=== PATIENT | male | born 1995 | race Caucasian/White ===

== ENCOUNTER 2022-08-20 17:07 | Inpatient (IN) | payer OTHER ==
[~2022-08-20] VITALS: Ht 175.3 cm; Wt 94.8 kg
[2022-08-20 17:37] VITALS: BP 118/86
[2022-08-20 18:07] LABS: BASOPHILS # (AUTO) 0.1 K/uL (0.00-0.22); BASOPHILS % (AUTO) 0.7 % (0.0-2.0); EOSINOPHILS # (AUTO) 0.1 K/uL (0-0.4); EOSINOPHILS % (AUTO) 1.7 % (0.0-4.0); HEMATOCRIT 48.3 % (36-52); HEMOGLOBIN 16.3 g/dL (12.0-18.0); LYMPHOCYTES # (AUTO) 2.2 K/uL (2.0-11.5); LYMPHOCYTES % (AUTO) 26.9 % (20.5-51.1); MEAN CORPUSCULAR HEMOGLOBIN 30 pg (27-31); MEAN CORPUSCULAR HGB CONC 34 g/dL (33-37); MEAN CORPUSCULAR VOLUME 88.6 fL (80-94); MONOCYTES # (AUTO) 0.6 K/uL (0.8-1.0); MONOCYTES % (AUTO) 7.4 % (1.7-9.3); NEUTROPHILS # (AUTO) 5.3 K/uL (1.8-7.7); NEUTROPHILS % (AUTO) 63.3 % (42.2-75.2); PLATELET COUNT (AUTO) 212 K/uL (140-450); RED BLOOD CELL COUNT(AUTO) 5.45 MIL/uL (4.20-6.10); RED CELL DISTRIBUTION WIDTH 13.6 % (11.6-13.7); WHITE BLOOD COUNT (AUTO) 8.3 K/uL (4.8-10.8)
[2022-08-20 18:10] LABS: APPEARANCE,URINE CLEAR (CLEAR); BILIRUBIN,URINE NEGATIVE (NEGATIVE); BLOOD, URINE NEGATIVE (NEGATIVE); COLOR,URINE YELLOW (YELLOW); LEUKOCYTE ESTERASE ,URINE NEGATIVE (NEGATIVE); NITRITE, URINE NEGATIVE (NEGATIVE); PH,URINE 6.5 (5.0-9.0); UGLUCOSE NEGATIVE (NEGATIVE)
[2022-08-20 18:27] LABS: ALBUMIN 4.4 g/dL (3.4-5.0); ANION GAP 8.2 (8-16); CARBON DIOXIDE 33.3 mmol/L (21-32); CREATININE 1.2 mg/dL (0.6-1.3); POTASSIUM 4.5 mmol/L (3.5-5.1); TOTAL BILIRUBIN 0.5 mg/dL (0.0-1.0)
--- NOTE | 2022-08-20 23:50 | NUR ---
PT TO CHAIR FOR DR EXAMINATION
--- NOTE | 2022-08-20 23:51 | NUR ---
Patient being evaluated by physician
--- NOTE | 2022-08-21 00:02 | NUR ---
Patient taken to CT via WC.
--- NOTE | 2022-08-21 04:00 | NUR ---
COVID-19 swab collected and sent to lab.
[2022-08-21] MEDS ORDERED: HYDROcodone/APAP 5/325 MG 1 TAB TAB PO PRN (05:20)
[2022-08-21] MEDS ORDERED: MAGNESIUM OXIDE 400 MG TAB PO PRN (05:20)
[2022-08-21] MEDS ORDERED: POTASSIUM CHLORIDE 10 MEQ TABER PO PRN (05:20)
[2022-08-21] MEDS ORDERED: ACETAMINOPHEN 325 MG TAB PO PRN (05:20)
[2022-08-21] MEDS ORDERED: ONDANSETRON 4 MG/2 ML VIAL IVP PRN (05:20)
--- NOTE | 2022-08-21 05:35 | NUR ---
PT TO BED 10
--- NOTE | 2022-08-21 07:49 | NUR ---
Pt report given to Arash DE PAZ. Transfer of care at this time.
[2022-08-21] MEDS: DEXT 5% /NACL 0.9% 1,000 ML IV SCH ×2 (09:00→17:56)
[2022-08-21] MEDS: MORPHINE SULFATE 4 MG/ML SYR IVP PRN (16:35)
[2022-08-21 17:46] LABS: BASOPHILS % (AUTO) 0.4 % (0.0-2.0); EOSINOPHILS # (AUTO) 0.1 K/uL (0-0.4); EOSINOPHILS % (AUTO) 1.5 % (0.0-4.0); HEMATOCRIT 44.1 % (36-52); LYMPHOCYTES # (AUTO) 1.6 K/uL (2.0-11.5); LYMPHOCYTES % (AUTO) 21.5 % (20.5-51.1); MEAN CORPUSCULAR HEMOGLOBIN 30 pg (27-31); MEAN CORPUSCULAR HGB CONC 34 g/dL (33-37); MEAN CORPUSCULAR VOLUME 87.3 fL (80-94); MONOCYTES # (AUTO) 0.5 K/uL (0.8-1.0); MONOCYTES % (AUTO) 6.7 % (1.7-9.3); NEUTROPHILS # (AUTO) 5.2 K/uL (1.8-7.7); NEUTROPHILS % (AUTO) 69.9 % (42.2-75.2); PLATELET COUNT (AUTO) 185 K/uL (140-450); RED BLOOD CELL COUNT(AUTO) 5.05 MIL/uL (4.20-6.10); RED CELL DISTRIBUTION WIDTH 13.4 % (11.6-13.7); WHITE BLOOD COUNT (AUTO) 7.5 K/uL (4.8-10.8)
--- NOTE | 2022-08-21 18:57 | NUR ---
patient transported to OR accompanied by OR staff. stable at this time
[2022-08-21] MEDS ORDERED: SEVOFLURANE 250 ML BTL INH ONE (19:10)
[2022-08-21] MEDS ORDERED: fentaNYL citrate 0.05 MG/ML VIAL ONE (19:13)
[2022-08-21] MEDS ORDERED: PROPOFOL 200 MG/20 ML VIAL IV ONE (19:14)
[2022-08-21] MEDS ORDERED: SUCCINYLCHOLINE CHLORIDE 200 MG/10 ML VIAL IVP ONE (19:14)
[2022-08-21] MEDS ORDERED: ceFAZolin 1,000 MG VIAL ONE (19:17)
[2022-08-21] MEDS ORDERED: LIDOCAINE 1% 500 MG/50 ML VIAL ONE (19:19)
[2022-08-21] MEDS ORDERED: BUPIVACAINE-MPF 0.5% 30 ML VIAL INJ ONE ×2 (19:19→19:20)
[2022-08-21] MEDS ORDERED: ROCURONIUM 50 MG/5 ML VIAL IV ONE (19:26)
[2022-08-21] MEDS ORDERED: ONDANSETRON 4 MG/2 ML VIAL ONE (19:37)
[2022-08-21] MEDS ORDERED: SUGAMMADEX SODIUM 200 MG/2 ML VIAL IV ONE (20:16)
[2022-08-21 22:00] VITALS: BP 127/61
[2022-08-22] VITALS (8 sets, daily range): BP systolic 107–135; BP diastolic 45–86
[2022-08-22] MEDS: MORPHINE SULFATE 4 MG/ML SYR IVP PRN ×2 (00:54→04:47)
[2022-08-22] MEDS: DEXT 5% /NACL 0.9% 1,000 ML IV SCH ×3 (04:52→19:27)
[2022-08-22 05:34] LABS: BASOPHILS % (AUTO) 0.5 % (0.0-2.0); EOSINOPHILS % (AUTO) 0.5 % (0.0-4.0); HEMATOCRIT 42.1 % (36-52); HEMOGLOBIN 14.3 g/dL (12.0-18.0); LYMPHOCYTES # (AUTO) 1.7 K/uL (2.0-11.5); LYMPHOCYTES % (AUTO) 19.5 % (20.5-51.1); MEAN CORPUSCULAR HEMOGLOBIN 30 pg (27-31); MEAN CORPUSCULAR HGB CONC 34 g/dL (33-37); MEAN CORPUSCULAR VOLUME 87.8 fL (80-94); MONOCYTES # (AUTO) 0.5 K/uL (0.8-1.0); MONOCYTES % (AUTO) 6.2 % (1.7-9.3); NEUTROPHILS # (AUTO) 6.4 K/uL (1.8-7.7); NEUTROPHILS % (AUTO) 73.3 % (42.2-75.2); PLATELET COUNT (AUTO) 168 K/uL (140-450); RED CELL DISTRIBUTION WIDTH 13.5 % (11.6-13.7); WHITE BLOOD COUNT (AUTO) 8.8 K/uL (4.8-10.8)
[2022-08-22 06:14] LABS: ANION GAP 11.7 (8-16); CREATININE 1.2 mg/dL (0.6-1.3); POTASSIUM 3.7 mmol/L (3.5-5.1)
--- NOTE | 2022-08-22 06:34 | NUR ---
2330: REC'D AND ADMITTED PT FROM OR, EXTUBATED, S/P LAPAROSCOPIC WITH 3 INCISIONS ON THE ABD AREA. C/O 3/10 PAIN, NOT ASKING FOR ANY PAIN MEDS A/OX4, ON 10L SIMPLE MASK ON AND OFF SATS >93%. 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 HAS LAC#20G PATENT AND INTACT INFUSING D5NS AT 80CC/HR AND ON ATBX. 0400: GIVEN PARTIAL BATH. GIVEN 2X PAIN MEDS DURING SHIFT FOR 8/10 PAIN ON THE SURGICAL SITE. 0600: SURGICAL SITE X3 INTACT, NO BLEEDING AND NO HEMATOMA IS NOTED, CLEAN DRY AND INTACT. WILL ENDORSE TO AM RN TO ASSUME PLAN OF CARE.
--- NOTE | 2022-08-22 07:25 | NUR ---
0720: endorsed pt to AM ZANDRA OLIVAREZ TO ASSUME PLAN OF CARE. PT'S ASKING FOR HIS BELONGINGS AND SHOWS FROM OR PT'S BELONGINGS RECORD WAS GIVEN TO A SIGNIFICANT OTHER FRO SAFEKEEPING. NO BELONGINGS PRESENTED DURING ADMISSION TO ICU 3. WAS CALLED VIRAJ/METHODIST OVERSEER AND SAID HE NEVER RECEIVE ANY BELONGINGS FROM THE PT. SHER WILL F/U THE PT'S BELONGINGS
--- NOTE | 2022-08-22 08:55 | NUR ---
PT ENDORSED AT 0700. ON ROOM AIR AND SATTING AT 100. AT 0730 PTS BELONGINGS AND INLUDING CLOTHES AND CELLPHONE WERE RECOVERED FROM OUT PATIENT. CLEAR LIQUID DIET WAS PLACED AT BEDSIDE. PT DISPLAYED USE OF THE URINAL WITH 600 ML OUTPUT. PT IN CONTACT WITH [facility] OVERSEER REGARDIG DISCHARGE CIRCUMSTANCES
--- NOTE | 2022-08-22 09:33 | NUR ---
PATIENT HAS BEEN SCREENED AND CATEGORIZED MODERATE NUTRITION RISK. PATIENT WILL BE SEEN WITHIN 3-5 DAYS OF ADMISSION. REVIEWED BY REJI SALDAÑA RD
--- NOTE | 2022-08-22 20:28 | NUR ---
1899: rec'd pt from zandra Kulkarni to assume plan of care. Pt's dong self bath. a/ox4, denies pain, stable vital signs. MS status. for transfer to [place] once room is available. 2019: ambulated pt to the restroom for #2, voided freely, steady gait as observed and accompanied to the [facility] restroom. 2024: Pt's room now available in [facility] room 111-A 2034: report given to ZANDRA Wright to assume plan of care. 2035: Called pt's contact friend VIRAJ and notified pt's going [facility] Room 111-A VIRAJ ([facility] overseer) . Belongings with the pt, has cell phone and clothings
--- NOTE | 2022-08-22 20:45 | NUR ---
2044: pt's transferred to [facility] room 111A via wheelchair accompanied by position classification manager Edna. All pt's belongings came with the pt.
--- NOTE | 2022-08-22 21:00 | NUR ---
RECEIVED TRANSFER FROM ICU TO ROOM 111A. PATIENT ALERT AND ORIENTED. AWARE OF WHY HE IS IN THE HOSPITAL AND WHY HE HAS BEEN TRANSFERRED. PATIENT WAS GIVEN IV HYDRATION PER MD ORDERS. COVERING RN WAS MADE AWARE OF UPCOMING IVPB AT 2200. PATIENT WAS ORIENTED TO THE ROOM AND RESTROOM, BED, CALL LIGHT, AND VISITING HOURS. PATIENT RESUMES FULL LIQUID DIET UNTIL MD CHANGED THE ORDERS. SIDE RAILS UP X 2. CALL LIGHT WITHIN REACH. [email or web address]
--- NOTE | 2022-08-23 | NUR ---
PATIENT WAS GIVEN A PRN FOR PAIN ANS SLEEP X ONE HOUR AGE. NURSING NOTED PATIENT IN BED ASLEEP WITHOUT INCIDENT. CALL LIGHT WITHIN REACH FOR ALL ASSISTANCE. [email or web address]
--- NOTE | 2022-08-23 00:53 | NUR ---
PATIENT IN BED ASLEEP. NO NOTED S/S OF PAIN/DISCOMFORT. NO NOTED S/S OF RESPIRATORY DISTRESS. CALL LIGHT WITHIN REACH. [email or web address]
--- NOTE | 2022-08-23 03:18 | NUR ---
PATIENT IN BED ASLEEP. NO NOTED S/S OF PAIN/DISCOMFORT. NO NOTED S/S OF RESPIRATORY DISTRESS. CALL LIGHT WITHIN REACH. [email or web address]
[2022-08-23 04:00] VITALS: BP 116/74
--- NOTE | 2022-08-23 05:07 | NUR ---
PATIENT IN BED ASLEEP. NO NOTED S/S OF PAIN/DISCOMFORT. NO NOTED S/S OF RESPIRATORY DISTRESS. CALL LIGHT WITHIN REACH. [email or web address]
--- NOTE | 2022-08-23 07:25 | NUR ---
ENDORSED PATIENT CARE TO HEATH OLIVAS, PATIENT WAS STABLE DURING SHIFT REPORT. [email or web address]
--- NOTE | 2022-08-23 07:26 | NUR ---
RECEIVED REPORT FROM ASSISTANT AUTO CENTER MANAGER NURSE, BLAS, FOR CONTINUITY OF CARE. PT IS IN BED AT THIS TIME, SLEEPING. RESPIRATIONS ARE EVEN AND UNLABORED ON ROOM AIR. NO SIGNS OF DISTRESS NOTED. NO SIGNS OF PAIN OR DISCOMFORT. PT IS ALERT AND ORIENTED X4, ABLE TO FOLLOW COMMANDS, ABLE TO VERBALIZE NEEDS. PT IS ON FULL LIQUID DIET. PT HAS IV TO LAC 20G. SKIN IS WARM, DRY, AND INTACT. CALL LIGHT WITHIN REACH. ALL SAFETY MEASURES IN PLACE.
[2022-08-23 07:29] LABS: BASOPHILS % (AUTO) 0.5 % (0.0-2.0); EOSINOPHILS # (AUTO) 0.1 K/uL (0-0.4); EOSINOPHILS % (AUTO) 1.4 % (0.0-4.0); HEMATOCRIT 42.9 % (36-52); HEMOGLOBIN 14.4 g/dL (12.0-18.0); LYMPHOCYTES # (AUTO) 1.9 K/uL (2.0-11.5); MEAN CORPUSCULAR HEMOGLOBIN 30 pg (27-31); MEAN CORPUSCULAR HGB CONC 34 g/dL (33-37); MEAN CORPUSCULAR VOLUME 88.3 fL (80-94); MONOCYTES # (AUTO) 0.5 K/uL (0.8-1.0); MONOCYTES % (AUTO) 7.9 % (1.7-9.3); NEUTROPHILS # (AUTO) 4.1 K/uL (1.8-7.7); NEUTROPHILS % (AUTO) 61.2 % (42.2-75.2); PLATELET COUNT (AUTO) 183 K/uL (140-450); RED BLOOD CELL COUNT(AUTO) 4.85 MIL/uL (4.20-6.10); RED CELL DISTRIBUTION WIDTH 13.4 % (11.6-13.7); WHITE BLOOD COUNT (AUTO) 6.6 K/uL (4.8-10.8)
[2022-08-23 07:46] LABS: ANION GAP 9.2 (8-16); CARBON DIOXIDE 32.3 mmol/L (21-32); CREATININE 1.2 mg/dL (0.6-1.3); POTASSIUM 4.5 mmol/L (3.5-5.1)
[2022-08-23 08:00] VITALS: BP 111/63
--- NOTE | 2022-08-23 11:15 | NUR ---
WENT TO DO ROUNDS ON PT. PT ON HIS PHONE AT THIS TIME. NO COMPLAINTS OF PAIN OR DISCOMFORT.
[2022-08-23] MEDS ORDERED: ACET-1182 PO (13:01)
--- NOTE | 2022-08-23 14:20 | NUR ---
ENCOURAGED PT TO AMBULATE AROUND UNIT. ASSISTED PT. PT TOLERATED WELL.
[2022-08-23 14:58] VITALS: BP 111/63
--- NOTE | 2022-08-23 16:00 | NUR ---
WENT OVER DISCHARGE PAPERWORK WITH PT. ANSWERED ALL QUESTIONS. PT SIGNED ALL PAPERWORK. REMOVED IV. IV CATHETER INTACT. PT DISCHARGED HOME. ALL BELONGINGS TAKEN UPON DISCHARGE.
== END 2022-08-23 15:55 | disposition home or self-care (01) | DRG 223 ==
LOC: MED 17:07 → MMU 08-21 05:23 → OBSVTOIN 08-21 05:23 → MIC 08-21 22:05 → MTU 08-22 21:00
PROVIDERS: ADMIT Student in an Organized Health Care Education/Training Program; ATTEND Student in an Organized Health Care Education/Training Program
PROC: 0DC84ZZ Extirpation of Matter from Small Intestine, Percutaneous Endoscopic Approach (ICD-10-PCS; principal; 2022-08-21 18:45)
DX: T18.8XXA Foreign body in other parts of alimentary tract, initial encounter (principal); K56.609 Unspecified intestinal obstruction, unspecified as to partial versus complete obstruction; Z20.822 Contact with and (suspected) exposure to COVID-19; Y93.89 Activity, other specified; Y92.89 Other specified places as the place of occurrence of the external cause; Y99.8 Other external cause status
CPT/HCPCS: 36415; 74018; 80048; 80053; 81003; 85025; 86886; 86900; 86901; 87081; 88300; 93005; J0330; J0690; J0694; J1644; J2001; J2270; J2405; J2704; J3010; J3490; J7030; J7060; Q0092

== ENCOUNTER 2022-08-26 09:37 | Emergency (ER) | payer OTHER ==
[~2022-08-26] VITALS: Ht 175.3 cm; Wt 92.5 kg
[~2022-08-26 09:37] MED LIST: ACET-1182 PO
[2022-08-26 09:43] VITALS: BP 119/62
--- NOTE | 2022-08-26 09:48 | NUR ---
PT AMBULATED TO ER BED 3
[2022-08-26] MEDS ORDERED: KETOROLAC 60 MG/2 ML VIAL IM ONE (09:50)
--- NOTE | 2022-08-26 10:00 | NUR ---
A/OX4 VSS , RIGHT FLANK RIB PAIN 09/08
[2022-08-26] MEDS ORDERED: IBUP-2213 PO (10:30)
[2022-08-26] MEDS ORDERED: ACET-8905 PO (10:30)
--- NOTE | 2022-08-26 10:45 | NUR ---
Patient discharged with v/s stable. Written and verbal after care instructions given and explained. Patient alert, oriented and verbalized understanding of instructions. Ambulatory with steady gait. All questions addressed prior to discharge. ID band removed. Patient advised to follow up with PMD. Rx of norc/ motrin given. Patient educated on indication of medication including possible reaction and side effects. Opportunity to ask questions provided and answered.
== END 2022-08-26 10:45 | disposition home or self-care (01) ==
LOC: MED 09:37
DX: R10.9 Unspecified abdominal pain (principal); R07.89 Other chest pain; R06.02 Shortness of breath; F17.200 Nicotine dependence, unspecified, uncomplicated; Z98.890 Other specified postprocedural states
CPT/HCPCS: 96372; 99283; J1885

== ENCOUNTER 2023-04-29 22:01 | Emergency (ER) | payer OTHER ==
[~2023-04-29] VITALS: Ht 177.8 cm; Wt 77.1 kg
[~2023-04-29 22:01] MED LIST changes: +ACET-8905 PO; +IBUP-2213 PO
[2023-04-29 22:13] VITALS: BP 134/76; PULSE 88; RESP 18; TEMP 97.6; O2SAT 100
[2023-04-30] MEDS ORDERED: ceFAZolin 1,000 MG VIAL IM ONE (00:35)
[2023-04-30] MEDS ORDERED: CEPH-588 PO (00:38)
[2023-04-30] MEDS ORDERED: IBUPROFEN 600 MG TAB PO ONE (00:45)
[2023-04-30] MEDS ORDERED: NAPR-54 PO (00:49)
[2023-04-30 00:58] VITALS: BP 134/76; PULSE 88; RESP 18; TEMP 97.6; O2SAT 100
== END 2023-04-30 00:58 | disposition home or self-care (01) ==
LOC: MED 22:01
DX: S61.314A Laceration without foreign body of right ring finger with damage to nail, initial encounter (principal); X58.XXXA Exposure to other specified factors, initial encounter; Y93.89 Activity, other specified; Y92.89 Other specified places as the place of occurrence of the external cause; Y99.8 Other external cause status
CPT/HCPCS: 73130; 99283